=== PATIENT | female | born 1995 | race Caucasian/White ===

== ENCOUNTER 2019-11-07 08:32 | Inpatient (IN) | payer BC, OTHER ==
[~2019-11-07] VITALS: Ht 170.2 cm; Wt 98.5 kg
[2019-11-07 09:17] LABS: MICROSCOPIC NOT IND
--- NOTE | 2019-11-07 09:31 | NUR ---
TOUCHER UP: PT AMBULATORY WITH STEADY GAIT TO ROOM AT THIS TIME. ALENA
[2019-11-07] MEDS ORDERED: SODIUM CHLORIDE FLUSH 10ML SYR IVF ONE (10:00)
[2019-11-07] MEDS ORDERED: KETOROLAC 30 MG/1 ML IVPush ONE ×2 (10:00→15:00)
[2019-11-07] MEDS ORDERED: ONDANSETRON 2MG/ML, 2ML IVPush ONE ×3 (10:00→16:30)
[2019-11-07] MEDS ORDERED: SODIUM CHLORIDE 0.9% 1,000ML IV ONE (10:00)
[2019-11-07] MEDS ORDERED: KETOROLAC 30 MG/1 ML ONE ×2 (10:16→14:50)
[2019-11-07] MEDS ORDERED: ONDANSETRON 2MG/ML, 2ML ONE ×3 (10:16→16:37)
[2019-11-07 10:21] LABS: BASOPHILS # (AUTO) 0.02 x10^3/uL (0-0.1); BASOPHILS % (AUTO) 0 % (0-1); EOSINOPHILS # (AUTO) 0.21 x10^3/uL (0-0.4); EOSINOPHILS % (AUTO) 2 % (1-7); LYMPHOCYTES # (AUTO) 1.29 x10^3/uL (1-3.4); LYMPHOCYTES % (AUTO) 10 % (22-44); MD NO; MEAN CORPUSCULAR HGB CONC 32.9 g/dL (32.4-35.8); MEAN PLATELET VOLUME 8.4 fL (7.4-10.4); MONOCYTES # (AUTO) 0.42 x10^3/uL (0.2-0.8); MONOCYTES % (AUTO) 3 % (2-9); NEUTROPHILS # (AUTO) 10.79 x10^3/uL (1.8-6.8); NEUTROPHILS % (AUTO) 85 % (42-75); PLATELET COUNT 313 x10^3/uL (130-400); RED BLOOD COUNT 5.24 x10^6/uL (3.82-5.3); RED CELL DISTRIBUTION WIDTH 12.8 % (9.6-15.2)
[2019-11-07 10:33] LABS: ALANINE AMINOTRANSFERASE 323 U/L (12-78); ALBUMIN 4.1 g/dL (3.4-5.0); ANION GAP 11 mmol/L (5-15); CALCIUM 9.2 mg/dL (8.5-10.1); CHLORIDE 107 mmol/L (98-107); CREATININE 0.96 mg/dL (0.55-1.02)
[2019-11-07 10:38] LABS: ALKALINE PHOSPHATASE 187 U/L (45-117); BILIRUBIN,TOTAL 5.4 mg/dL (0.2-1.0); TOTAL PROTEIN 8.5 g/dL (6.4-8.2)
--- NOTE | 2019-11-07 12:06 | NUR ---
TP: PT RECIEVING US AT THIS TIME. PT REPORTS NO PAIN, PT VITALS WNL.
[2019-11-07] MEDS ORDERED: SODIUM CHLORIDE 0.9% 1,000ML IVBOLUS ONE (13:00)
--- NOTE | 2019-11-07 14:20 | NUR ---
TASK RN: ASSISTED PT TO BSC, OBTAINED URINE SAMPLE. VSS. FALL PRECAUTIONS IN PLACE.
--- NOTE | 2019-11-07 14:59 | NUR ---
PT TO [facility]AN VIA [facility]
[2019-11-07] MEDS ORDERED: HYDROmorphone 1 MG/ML, 1ML INJ ONE ×2 (16:37→19:27)
[2019-11-07] MEDS: HYDROmorphone 2 MG/ML, 1ML IVPush PRN ×2 (16:41→19:30)
--- NOTE | 2019-11-07 17:11 | NUR ---
PT TO MRI VIA [facility]
[2019-11-07] MEDS ORDERED: GADOTERATE 10 MMOL/20 ML SYR ONE (18:27)
--- NOTE | 2019-11-07 18:53 | NUR ---
Report received from ABDI Biggs. This RN to assume care.
--- NOTE | 2019-11-07 19:09 | NUR ---
Patient returned from MRI.
--- NOTE | 2019-11-07 19:20 | NUR ---
Report given to ABDI Garcia. Patient to be transferred to room 341.
[2019-11-07] MEDS ORDERED: BISACODYL 10 MG SUPP PR PRN (19:30)
[2019-11-07] MEDS ORDERED: morphine SULFATE 10 MG/ML, 1ML IVPush PRN (19:30)
[2019-11-07] MEDS ORDERED: POLYETHYLENE GLYCOL 17 GM PACKET PO PRN (19:30)
[2019-11-07] MEDS ORDERED: PROMETHAZINE 25 MG/ML, 1ML IM PRN (19:30)
[2019-11-07 20:00] VITALS: BP 126/79
[2019-11-07 20:03] LABS: FREE T4 (FREE THYROXINE) 1.53 ng/dL (0.76-1.46)
[2019-11-07] MEDS: SODIUM CHLORIDE 0.9% 1,000 ML IV SCH (21:24)
[2019-11-07] MEDS: ONDANSETRON 2MG/ML, 2ML IVPush PRN (21:33)
[2019-11-07] MEDS: OXYcodone IR 5MG TABLET PO PRN (21:40)
[2019-11-08 00:40] VITALS: BP 101/65
[2019-11-08] MEDS: OXYcodone IR 5MG TABLET PO PRN ×3 (03:33→18:08)
[2019-11-08] MEDS: ONDANSETRON 2MG/ML, 2ML IVPush PRN (03:33)
[2019-11-08 04:58] LABS: BASOPHILS # (AUTO) 0.05 x10^3/uL (0-0.1); BASOPHILS % (AUTO) 0 % (0-1); EOSINOPHILS # (AUTO) 0.08 x10^3/uL (0-0.4); EOSINOPHILS % (AUTO) 1 % (1-7); LYMPHOCYTES # (AUTO) 1.84 x10^3/uL (1-3.4); LYMPHOCYTES % (AUTO) 15 % (22-44); MD NO; MEAN CORPUSCULAR HEMOGLOBIN 28.8 pg (27.0-34.8); MEAN CORPUSCULAR HGB CONC 32.1 g/dL (32.4-35.8); MEAN PLATELET VOLUME 8.6 fL (7.4-10.4); MONOCYTES # (AUTO) 1.01 x10^3/uL (0.2-0.8); MONOCYTES % (AUTO) 8 % (2-9); NEUTROPHILS # (AUTO) 9.68 x10^3/uL (1.8-6.8); NEUTROPHILS % (AUTO) 77 % (42-75); PLATELET COUNT 297 x10^3/uL (130-400); RED BLOOD COUNT 4.68 x10^6/uL (3.82-5.3); RED CELL DISTRIBUTION WIDTH 13.6 % (9.6-15.2)
[2019-11-08 05:06] LABS: CHLORIDE 111 mmol/L (98-107)
[2019-11-08 05:16] LABS: ALANINE AMINOTRANSFERASE 234 U/L (12-78); ALBUMIN 3.2 g/dL (3.4-5.0); ALKALINE PHOSPHATASE 151 U/L (45-117); ANION GAP 9 mmol/L (5-15); BILIRUBIN,TOTAL 3.8 mg/dL (0.2-1.0); CALCIUM 8.4 mg/dL (8.5-10.1); CHOL/HDL RATIO 2.6; CHOLESTEROL, TOTAL 146 mg/dL (140-239); CREATININE 0.81 mg/dL (0.55-1.02); HDL CHOL % 39 % (28-40); HDL CHOLESTEROL (DIRECT) 57 mg/dL (40-60); LDL CHOLESTEROL,CALCULATED 73 mg/dL (54-169); LDL/HDL RATIO 1.3 (0.5-3.0); TOTAL PROTEIN 6.9 g/dL (6.4-8.2); TRIGLYCERIDES 78 mg/dL (50-200); VLDL CHOLESTEROL 16 mg/dL (0-25)
[2019-11-08] MEDS: SODIUM CHLORIDE 0.9% 1,000 ML IV SCH (06:17)
[2019-11-08 07:16] VITALS: BP 122/75
[2019-11-08] MEDS: SENNA/DOCUSATE TABLET PO SCH (07:58)
[2019-11-08] MEDS ORDERED: LIDODERM 5% PATCH TD ONE (08:30)
[2019-11-08] MEDS: GABAPENTIN 400 MG CAPSULE PO SCH ×3 (08:32→21:11)
[2019-11-08 12:20] VITALS: BP 122/75
[2019-11-08] MEDS: ONDANSETRON ODT 4 MG PO PRN ×2 (14:19→17:59)
[2019-11-08] MEDS ORDERED: OXYcodone/APAP 5/325MG TABLET PO ONE (14:30)
[2019-11-08] MEDS ORDERED: OXYcodone IR 5MG TABLET PO ONE (14:30)
[2019-11-08 19:12] VITALS: BP 109/85
[2019-11-09 00:02] VITALS: BP 115/75
[2019-11-09 06:17] LABS: CALCIUM 8.6 mg/dL (8.5-10.1); CHLORIDE 108 mmol/L (98-107)
[2019-11-09 06:22] LABS: ALANINE AMINOTRANSFERASE 229 U/L (12-78); ALBUMIN 3.2 g/dL (3.4-5.0); ALKALINE PHOSPHATASE 159 U/L (45-117); ANION GAP 9 mmol/L (5-15); BILIRUBIN,TOTAL 1.8 mg/dL (0.2-1.0); CREATININE 0.75 mg/dL (0.55-1.02)
[2019-11-09 06:54] VITALS: BP 116/73
[2019-11-09] MEDS: OXYcodone IR 5MG TABLET PO PRN ×3 (07:21→22:58)
[2019-11-09] MEDS: GABAPENTIN 400 MG CAPSULE PO SCH ×3 (07:22→22:58)
[2019-11-09] MEDS: ONDANSETRON ODT 4 MG PO PRN (07:22)
[2019-11-09] MEDS: SENNA/DOCUSATE TABLET PO SCH (07:29)
[2019-11-09] MEDS ORDERED: KETOROLAC 30 MG/1 ML ONE (10:57)
[2019-11-09] MEDS ORDERED: NEOSTIGMINE 1 MG/ML, 10ML ONE (10:57)
[2019-11-09] MEDS ORDERED: ROCURONIUM 10MG/ML,5ML ONE (10:57)
[2019-11-09] MEDS ORDERED: GLYCOPYRROLATE 0.2MG/1ML, 5ML ONE (10:57)
[2019-11-09 13:09] VITALS: BP 105/72
[2019-11-09] MEDS ORDERED: BUPIVACAINE/PF 0.5% ONE (15:08)
[2019-11-09] MEDS ORDERED: EPINEPHRINE 1 MG/ML, 1ML ONE (15:09)
[2019-11-09] MEDS ORDERED: FENTANYL PF 250 MCG/5ML ONE (16:35)
[2019-11-09] MEDS ORDERED: MIDAZOLAM 1 MG/ML, 2ML ONE (16:35)
[2019-11-09] MEDS ORDERED: ACETAMINOPHEN 325 MG TABLET PO PRN ×2 (17:00→17:30)
[2019-11-09] MEDS ORDERED: ONDANSETRON 2MG/ML, 2ML IVPush PRN (17:00)
[2019-11-09] MEDS ORDERED: LORazepam 2 MG/ML, 1ML IVPush PRN ×2 (17:00→17:30)
[2019-11-09] MEDS ORDERED: hydrALAzine 20 MG/ML, 1ML IV PRN ×2 (17:00→17:30)
[2019-11-09] MEDS ORDERED: CHLORHEXIDINE 15 ML UDC MM ONE (17:00)
[2019-11-09] MEDS ORDERED: MIDAZOLAM 1 MG/ML, 2ML IV PRN (17:00)
[2019-11-09] MEDS ORDERED: OXYcodone 5 MG/5 ML ORAL.SOL UDC PO PRN ×2 (17:00→17:30)
[2019-11-09] MEDS ORDERED: LABETALOL 5MG/ML, 20ML IV PRN ×2 (17:00→17:30)
[2019-11-09] MEDS ORDERED: MEPERIDINE/PF 25MG/0.5ML IVPush PRN ×2 (17:00→17:30)
[2019-11-09] MEDS ORDERED: HYDROmorphone 1 MG/ML, 1ML INJ IVPush PRN ×2 (17:00→17:30)
[2019-11-09] MEDS ORDERED: FENTANYL PF 100 MCG/2ML IV PRN (17:00)
[2019-11-09] MEDS ORDERED: PROMETHAZINE 25 MG/ML, 1ML IVPush PRN ×2 (17:00→17:30)
[2019-11-09] MEDS ORDERED: METHOCARBAMOL 1,000 MG in DEXTROSE 5% 100 ML IV PRN (17:30)
[2019-11-09] MEDS ORDERED: ALBUTEROL SULFATE 2.5 MG/3 ML NPPB PRN (17:30)
[2019-11-09] MEDS ORDERED: DEXAMETHASONE 4 MG/ML, 1ML ONE (18:28)
[2019-11-09] MEDS ORDERED: CEFAZOLIN 1,000 MG ONE (18:28)
[2019-11-09] MEDS ORDERED: PROPOFOL 10 MG/ML, 20ML ONE (18:28)
[2019-11-09] MEDS ORDERED: ONDANSETRON 2MG/ML, 2ML ONE (18:28)
[2019-11-09] MEDS ORDERED: FENTANYL PF 100 MCG/2ML ONE (18:44)
[2019-11-09] MEDS ORDERED: OXYcodone 5 MG/5 ML ORAL.SOL UDC ONE (18:45)
[2019-11-09] MEDS: FENTANYL PF 100 MCG/2ML IV PRN ×2 (18:49→19:24)
[2019-11-09] MEDS ORDERED: LORazepam 2 MG/ML, 1ML ONE (18:55)
[2019-11-09 20:59] VITALS: BP 118/73
[2019-11-10 00:23] VITALS: BP 114/77
[2019-11-10 04:35] VITALS: BP 109/68
[2019-11-10] MEDS: OXYcodone IR 5MG TABLET PO PRN ×3 (06:08→15:01)
[2019-11-10 06:44] VITALS: BP 118/81
[2019-11-10] MEDS: SENNA/DOCUSATE TABLET PO SCH (09:00)
[2019-11-10] MEDS: GABAPENTIN 400 MG CAPSULE PO SCH (09:00)
[2019-11-10] MEDS ORDERED: OXYC5TAB3 PO (11:27)
[2019-11-10] MEDS ORDERED: LIDO700A20 TD (11:27)
[2019-11-10 13:55] VITALS: BP 121/83
== END 2019-11-10 16:01 | disposition home or self-care (01) | DRG 419 ==
LOC: ED 09:17 → EDIP 18:04 → 3N 20:00 → 4NE 11-09 20:12 → DCLOUNGE 11-10 15:36
PROVIDERS: ADMIT Internal Medicine; ATTEND Internal Medicine
PROC: 0FT44ZZ Resection of Gallbladder, Percutaneous Endoscopic Approach (ICD-10-PCS; principal; 2019-11-09 18:15)
DX: K80.63 Calculus of gallbladder and bile duct with acute cholecystitis with obstruction (principal); K76.0 Fatty (change of) liver, not elsewhere classified; E66.9 Obesity, unspecified; Z68.30 Body mass index [BMI] 30.0-30.9, adult; D72.829 Elevated white blood cell count, unspecified
CPT/HCPCS: 36415; 72072; 72110; 96361; 96374; 96376; 99285; S0020; 72157; 74181; 76700; 78226; 80053; 80061; 80074; 81003; 82977; 83036; 83605; 83690; 83735; 84439; 84443; 84703; 85025; 86308; 87635; 88304; G0378; J0171; J0690; J1100; J1170; J1885; J2250; J2405; J2550; J2704; J2710; J3010; Q0162; A9537; A9575; J2060; J7030